=== PATIENT | male | born 1995 | race Caucasian/White ===

== ENCOUNTER 2024-09-02 09:05 | Outpatient (AMB) | payer OTHER, SELFPAY ==
--- NOTE | 2024-09-02 09:13 | A.OFFPC_ITS ---
Vital Signs 09/02/24 09:14 Height 6 ft 7 in Weight 269 lb BMI 30.3 BP 106/70 Blood Pressure Location Lt brachial Position Sitting Pulse 92 Pulse Source Pulse Oximeter Temp 98.0 F Temp Source Oral Pulse Oximetry (%) 97 Intake Visit Reasons: est care Intake Note: pt is here for est care Water Analyst Required: No Accompanied by: Mother Allergies aspartame Allergy (Mild, Verified 09/02/24 10:06) Unknown hydrocortisone [From Hydrocortone] Allergy (Mild, Verified 09/02/24 10:06) Rash mold Allergy (Mild, Verified 09/02/24 10:06) Unknown Medication List - Last Reconciled 09/02/24 by JODIE Taylor-BC multivitamin 1 tab PO DAILY Tobacco use date assessed: 09/02/24 Dental Screening Dental Screen Date: 09/02/24 Did you have a dental visit in the last 12 months?: Yes Did you have a dental problem in the last 6 months where you did not have access to dental care?: No Was dental information given to patient?: Patient has dentist HPI HPI Comments History of Present Illness Details 29 y/o M with migraine, BHANU, obesity, ne ck pain Social works at [employer], lives w/ Mom Health Maintenance: Flu declined Tdap declined Specialist podiatry chiro Here to est care The patient is a 29-year-old male presenting with nausea and vomiting. The symptoms began on Saturday at 9:00 AM with both vomiting and diarrhea. There was no presence of blood in the vomitus or stool. The patient denies any fever but reports experiencing chills. As of late yesterday, the vomiting has ceased, although he experiences a persistent state of dehydration and dryness of the mouth. He notes a reduced frequency of urination due to decreased fluid intake. The patient has not traveled recently and has not consumed any new foods, nor have any acquaintances recently experienced similar symptoms. The patient has a history of migraines, for which he takes specific medication, although he is currently out of this medication. These episodes are noted to be severe, occasionally causing further dehydration and nausea. He recalls a past occurrence of a migraine while in [place]. For his discolored toenail, the patient has observed persistent discoloration in his right great toenail. He previously consulted a freight service inspector, who has since , and received some medication that provided partial improvement but did not resolve the discoloration entirely. 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 He has been receiving care taker with prescribed exercises to manage this pain. + anxiety, stressors. would like to see counselor. Physical Exam General: Awake, alert. No apparent distress Eyes: Sclera and conjunctiva clear bilaterally Throat: Moist mucosa dry Cardiovascular: Regular rate and rhythm Respiratory: Clear to auscultation bilaterally Abd: soft, nontender, hypoactive bs x 4 R great toe nail thickened and discolored Flat affect Results Viral swab obtained and pending Discussion Notes I discussed with the patient the current state of his symptoms. Regarding nausea and dehydration, I recommended maintaining adequate hydration with liquids like water, watered-down jing adam, broth, and liquid supplements like Gatorade or Liquid IV. In the discussion regarding toenail discoloration, I proposed a podiatry referral to [facility] and [facility] for further evaluation and management. For migraines, I acknowledged the need for renewal of his migraine medication. We also discussed stress and anxiety management, leading to the decision to place a referral for counseling. Finally, I addressed musculoskeletal care, suggesting continuation with chiropractic treatments. Assessment and Plan 29-year-old male with a history of migra price presenting with nausea and vomiting, dehydration, and discolored toenail. The cessation of vomiting is noted with ongoing symptoms of dehydration. The likely diagnosis is acute gastroenteritis with secondary dehydration, possibly exacerbated by his migraine history. Discolored toenail may indicate persistent onychomycosis. Musculoskeletal pain is related to his occupational posture and is under current management. Stress and mild anxiety are present, warranting further exploration. 1. Dehydration Addressed with increased oral fluid intake; monitoring symptom improvement and consideration for further intervention if symptoms persist. 2. Nausea And Vomiting Suggested continued rehydration through oral fluids like broth and Gatorade. Emphasized importance of adequate fluid intake. Monitoring for any recurrence of symptoms was advised. 3. Discolored Toenail Discussed referral to [facility] and [facility] for podiatry consultation to assess persistent nail discoloration. 4. Musculoskeletal Pain Continued care taker with home exercises recommended to manage neck and upper back pain from occupational posture. No new interventions proposed. 5. Migraine Advised renewing the prescription for migraine medication. Discussed managing current migraine exacerbations with approved medication. Patient Instructions - Increase fluid intake with water, brot h, and electrolyte beverages. - Follow up with podiatry for the kathy monterroso toenail. - Renew and take migraine medication as prescribed. - Continue with assigned chiropractic ex ercises for neck pain. - Follow up with the counseling referral to address stress and anxiety. - Sign up for pt portal. Viral swab resu lts will be posted there and treatment rendered as needed. - Return if symptoms worsen or do not im prove as expected. Patient was informed and verbally consented to the use of an ambient scribe for clinic note documentation during this visit. Total time spent caring for the patient today was 45 minutes. This includes time spent before the visit reviewing the chart, time spent during the visit, and time spent after the visit on documentation, reviewing laboratory results, diagnostic imaging, medications, performing a medically necessary evaluation, counseling on diagnoses, care coordination, ordering appropriate tests, ordering appropriate medications, review of tests performed by other providers, reporting test results with the patient, communication with other healthcare providers. [facility] Surgical History (Updated 09/02/24 @ 09:20 by Pipo Saucedo [facility]) No pertinent past surgical history Social History Housing: House Patient Tobacco Use Status: Never used Tobacco e-Cigarette/Vaping Use: Never Used service: No Current occupational status: employed Current occupation: [employer] Current occupational exposures/hazards: No Cognitive needs: No Hearing needs: No Vision needs: No Questionnaire PHQ-9 Over the last 2 weeks, how often have you been bothered by any of the following problems? 1. Little interest or pleasure in doing things: not at all 2. Feeling down, depressed, or hopeless: not at all 3. Trouble falling or staying asleep, or sleeping too much: not at all 4. Feeling tired or having little energy: not at all 5. Poor appetite or overeating: not at all 6. Feeling bad about yourself - or that you are a failure or have let yourself or your family down: not at all 7. Trouble concentrating on things, such as reading the newspaper or watching television: not at all 8. Moving or speaking so slowly that other people could have noticed. Or the opposite - being so fidgety or restless that you have been moving around a lot more than usual: not at all 9. Thoughts that you would be better off or of hurting yourself in some way: not at all Total score: 0 Depression Screening Interpretation: Negative Depression Screening Done: Yes 28981 - PHQ-9 Billing: Yes Source: Developed by Drs. Oscar Rojas, Rosaline Rivera, Chang Perry and colleagues, with an educational vadim from [employer]. Thrive Questionnaire Date Thrive assessed: 09/02/24 I am a: Patient What is your living situation today?: I have a steady place to live Within the past 12 months, did the food you bought not last and you didn't have the money to get more?: Never true Within the past 12 months, did you worry whether your food would run out before you got money to buy more?: Never true Do you have trouble paying for medicines?: No Do you have trouble getting transportation to medical appointments?: No Do you have trouble paying your heating and electricity bill?: No Do you have trouble taking care of your child, family member or friend?: No Do you have trouble with day-to-day activities such as bathing, preparing meals, shopping, managing finances, etc.?: No Are you currently unemployed and looking for a job?: No Are you interested in more education?: No Please select the resources that you would like help with: None Currently or been in a relationship where the following occur: No concerns r eported THRIVE Score: 0 AUDIT C Alcohol Use Questionnaire (AUDIT-C) 1. How often do you have a drink containing alcohol?: Monthly or less 2. How many drinks containing alcohol do you have on a typical day when you are drinking?: 1 or 2 3. How often do you have six or more drinks on one occasion?: Never Total Score: 1 Score Reviewed/Action Taken: Yes BHANU-7 AMB Questionnaire BHANU-7 Date BHANU - 7 assessed: 09/02/24 Feeling nervous, anxious, or on edge: 0 = Not at all Not being able to stop or control worryin = Not at all Worrying too much about different things: 0 = Not at all Trouble relaxin = Not at all Being so restless that it is hard to sit still: 0 = Not at all Becoming easily annoyed or irritable: 0 = Not at all Feeling afraid as if something awful might happen: 0 = Not at all Total BHANU-7 score (0-4 normal; 5-9 mild; 10-14 moderate; 15-21 severe): 0 Source: Developed by Drs. Oscar Rojas, Rosaline Rivera, Chang Perry and colleagues, with an educational vadim from [employer]. BHANU-7 Assessment Billing BHANU-7 Assessment Tool: BHANU-7 Assessment 65347 Physical exam (Primary Care) Vital Signs: Last Vital Signs Temp 98.0 F 09/02/24 09:14 Pulse 92 09/02/24 09:14 BP 106/70 09/02/24 09:14 Pulse Ox 97 09/02/24 09:14 BMI result Body Mass Index 30.3 BMI Assessment/Plan discussion: High BMI High, discussed plan: lifestyle Tobacco/Smoking Status: Tobacco use Status Tobacco use date assessed 09/02/24 09/02/24 09:23 Patient Tobacco Use Status Never used Tobacco 09/02/24 09:23 e-Cigarette/Vaping Use Never Used 09/02/24 09:23 PHQ-9: PHQ-9 Score PHQ-9: Total score 0 09/02/24 10:08 Depression Screening Interpretation: Negative Thrive Assessment: Date of Thrive Assessment Date Thrive assessed 09/02/24 09/02/24 09:30 Currently or been in a relationship where the following occur: No concerns reported Coding Level of Care Code New Pt Level 4 (19312) Complex EM visit Add On G2211 Diagnoses Encounter to establish care Z76.89 Migraine headache G43.909 Migraine type: unspecified Intractability: not intractable Onychomycosis B35.1 Stomach flu A08.4 Neck pain M54.2 BMI 30.0-30.9,adult Z68.30 Obesity, Class I, BMI 30-34.9 E66.811 BHANU (generalized anxiety disorder) F41.1 Laboratory exam ordered as part of routine general medical examination Z00.00 Influenza vaccination declined Z28.21 Tetanus, diphtheria, and acellular pertussis (Tdap) vaccination declined Z28.21 Additional Codes BHANU-7 Assessment Billing - BHANU-7 Assessment Tool: BHANU-7 Assessment 16615 ([id number]) PHQ-9 - 01746 - PHQ-9 Billing: Yes ([id number]) Assessment & Plan Assessment & Plan (1) Encounter to establish care: Comment: no old records states no care since college Code(s): Z76.89 - Persons encountering health services in other specified circumstances Category: Medical (2) Migraine headache: Code(s): G43.909 - Migraine, unspecified, not intractable, without status migrainosus Category: Medical Qualifiers: Migraine type: unspecified Intractability: not intractable (3) Onychomycosis: Comment: R great toe Code(s): B35.1 - Tinea unguium Category: Medical (4) Stomach flu: Code(s): A08.4 - Viral intestinal infection, unspecified Category: Medical (5) Neck pain: Code(s): M54.2 - Cervicalgia Category: Medical (6) BMI 30.0-30.9,adult: Code(s): Z68.30 - Body mass index [BMI] 30.0-30.9, adult Category: Medical (7) Obesity, Class I, BMI 30-34.9: Code(s): E66.811 - Obesity, class 1 Category: Medical (8) BHANU (generalized anxiety disorder): Code(s): F41.1 - Generalized anxiety disorder Category: Medical (9) Laboratory exam ordered as part of routine general medical examination: Code(s): Z00.00 - Encounter for general adult medical examination without abnormal findings Category: Medical (10) Influenza vaccination declined: Code(s): Z28.21 - Immunization not carried out because of patient refusal Category: Medical (11) Tetanus, diphtheria, and acellular pertussis (Tdap) vaccination declined: Code(s): Z28.21 - Immunization not carried out because of patient refusal Category: Medical Plan . Orders: Orders UA CC w/rflx Micro + Cult Today Z00.00 - Encounter for general adult medical examination without abnormal findings SARS-CoV2/FLU/RSV Today R09.89 - Other specified symptoms and signs involving the circulatory and respiratory systems Complete Blood Count no Diff Today Z00.00 - Encounter for general adult medical examination without abnormal findings Comprehensive Met. Panel Today Z00.00 - Encounter for general adult medical examination without abnormal findings Hemoglobin A1c Today Z00.00 - Encounter for general adult medical examination without abnormal findings Lipid Panel Today Z00.00 - Encounter for general adult medical examination without abnormal findings Microalbumin, Random (w Creat) Today Z00.00 - Encounter for general adult medical examination without abnormal findings TSH reflex Free T4 Today Z00.00 - Encounter for general adult medical examination without abnormal findings Vitamin B12 and Folate Today Z00.00 - Encounter for general adult medical examination without abnormal findings Vitamin D 25-OH Total Today Z00.00 - Encounter for general adult medical examination without abnormal findings Referrals Podiatry Referral B35.1 - Tinea unguium Nurse Navigator Referral F41.1 - Generalized anxiety disorder Medications: New eletriptan take 1 tab at onset of headache; if no relief may repeat 1 tab after at least 2 hrs; max = 4 tabs/24 hr PO 7 tabs 12RF Patient Instructions: Walk-In Care (Urgent Care): We Make it Easy Walk-in for urgent medical issues such as: ? Seasonal Allergies ? Insect Bites ? Cough ? Diarrhea ? Acute Asthma Attacks ? Back, Knee or Joint Pain ? Ear Infection ? Fever without a Rash ? Headaches ? Nausea ? Dysart Eye, Rash or Skin Irritation ? Sore Throat ? Sports Physicals ? Vomiting Most insurances are accepted. Patients do not need to be part of the [facility] to seek care at the walk-in clinic. Locations [facility] , [place] [address] ? [phone] [facility] in [place] provides services to ages 18 and over. Open Saturday-Saturday: 8 a.m. to 5 p.m. and Saturday: 9 a.m. to 3 p.m.* *Hours may vary due to staffing availability. To confirm Walk-In Care hours in [place], please call [phone]. [address] [place] [address] ? [phone] [facility] in [place] provides services to ages 12 and over. Open Saturday-Saturday: 8 a.m. to 5 p.m. Hours may vary due to staffing availability. To confirm Walk-In Care hours in [place], please call [phone]. LABORATORY SERVICES: [facility] Lab ? Primary Location [address] [place] [address] Saturday through Saturday 6:00 AM ? 5:00 PM Saturday 7:00 AM ? 11:00 AM* [phone] The [facility] Lab is centrally located near the front entrance of the [facility] for easy outpatient access. Convenient parking is provided for outpatients. *Hours may vary due to staffing availability. To confirm Laboratory hours for any location, please call [phone]. Offsite Location For your convenience, we offer offsite laboratory draw stations at the following locations: [address] [place] [address] ? [facility] [address] [facility], [address] Saturday through Saturday 7:30 AM ? 1:00 PM* [phone] *Hours may vary due to staffing availability. To confirm Laboratory hours for any location, please call [phone]. [place] ? [address] Saturday through Saturday 6:00 AM ? 3:30 PM* Saturday 6:30 AM ? 3 PM* [phone] *Hours may vary due to staffing availability. To confirm Laboratory hours for any location, please call [phone]. [address] [facility] Saturday through Saturday 7:30 AM ? 4:00 PM* [phone] *Hours may vary due to staffing availability. To confirm Laboratory hours for a ok location, please call [phone] [place] [address] Saturday through 9:00 AM ? 4:00 PM* *Hours may vary due to staffing availability. To confirm Laboratory hours for any location, please call [phone]. Appointments are not necessary. Walk-ins are welcome. Like all the departments throughout the [facility], our Lab undergoes frequent reviews to ensure the quality and accuracy of test results, and our staff takes special pride in its status as a nationally accredited facility. Patient Portal: ONE PATIENT. ONE RECORD. BETTER CARE. [facility] has a fully integrated, cutting- edge mobile electronic health information system that has revolutionized the way we care for our patients and manage our organization. This system improves communication and coordination enabling us to provide safe, higher-quality care, and an overall positive experience for staff and patients. Our first priority, as always, is to deliver the highest quality care possible. The system is running in the background supporting that priority. This portal is for all [facility] services and practices. If you are experiencing any technical difficulties with enrolling or logging into the Patient Portal please complete the [facility] Patient Portal Technical Support Form. [facility] now offers a new secure on-line interactive tool for patients to review their health information ? ?Patient Portal. This interactive web portal will enable patients and their families to take an active role in their care by providing easy, secure access to their health information via the internet. The Patient Portal provides patients with instant access to their health information, including laboratory results, medications, allergies, demographic information, visit history, and more. In addition to managing their own care, parents and health care proxies with authorized consent will appreciate the ability to access the records of those individuals for whom they provide care. Please note: if you wish to gain access (Proxy) to another patient?s portal, you will be required to come to the Medical Records Department in person at [facility]. Both the patient giving proxy access and the proxy will need to provide photo identification and complete the appropriate authorization. The Patient Portal also allows track their appointments online. The [facility] Patient Portal also saves patients time by allowing them to submit updates to their demographic and contact information prior to their visits. Portal email notifications will also alert patients to any new activity on their portal, such as test results and new appointments. In order to initially enroll in the [facility] Patient Portal, you will need to enter some required information including the following: * your [facility] Medical Record number * your personal home email address * name * date of Please note: In order to enroll in the [facility] Patient Portal, we need to have your email address on file in your electronic medical record. ?The email address needs to be specific for one person (yourself) in order for your Portal enrollment to be successful. ?You can update your email address in person with our Registration staff when you are registering for a hospital visit. ?Otherwise, you will need to come to the Health Information Management (Medical Records) Department at [facility]. ?We are open from Saturday ? Saturday from 7:30 a.m. ? 4:30 p.m. ?You will be required to present a photo id. Once you have successfully enrolled in the Patient Portal, you will receive a one-time user id and password for the Portal, sent to your email address. ?This will allow you to log into the Patient Portal within 99 hrs and reset your own logon id and password, and define personal security questions. ?Once your permanent login and password have been set, you can log into the [facility] Patient Portal at any time via the blue button above or from the Portal Logon button on any page of the [facility] website. [facility] encourage all of our patients to enroll in Patient Portal as it presents a valuable opportunity for patients and their families to actively participate in their care and stay healthy Welcome to [facility]. ?We look forward to working with you.
[2024-09-02 09:14] VITALS: BP 106/70; PULSE 92; TEMP 36.7; O2SAT 97; BMI 30.3
--- OUTSIDE RECORDS SUMMARY | 2024-09-02 10:03 | XMS_ITS | Clinical Summary ---
Author Organization [facility] Address [address] [place] [address] Care Team Providers Care Kieselguhr Regenerator Operator Name Role Phone Yamilka Briceño MD Primary Care Provider [phone] Yamilka Briceño MD Unavailable [phone] Allergies Active Allergy Reactions Criticality Noted Date Comments Hydrocortisone 12/21/2016 Reactions: Rash Medications Eletriptan Hydrobromide (Relpax) 20 MG tablet TAKE 1 TABLET AT ONSET OF MIGRAINE. MAY REPEAT ONCE AFTER 2 HOURS. MAX 2 DOSES/24 HOURS. 36 3 7 Active Azithromycin (ZITHROMAX) 250 MG tablet Take 2 tablets on day 1, then 1 tablet a day for 4 days. 6 0 8 Active Active Problems Problem Noted Date Diagnosed Date Sore throat 10/04/2017 Overview (08/25/2023): Impression - [id number]: probably viral, possible mono Lower back pain 04/26/2017 Acute bronchitis 12/21/2016 Obesity 12/21/2016 Overview (08/25/2023): Impression - 04Jsj4544: Lose it! Impression - 72Bov1904: weight loss Classic migraine with aura 12/21/2016 Overview (08/25/2023): Impression - 13Fqg2712: neurology f/u Impression - 91Zhl9967: one MOORE since move several month ago Immunizations Name Administration Dates Next Due DT (pediatric) 12/21/2014 Family History Medical History Relation Name Comments Cancer - Breast Maternal grandmother khanh gnant neoplasm of breast : Maternal Grandmother, Grandfather Cancer - Breast Other malignant ne oplasm of breast : Maternal Grandmother, Grandfather Cancer - Prostate Other prostate c ancer : Grandfather Relation Name Status Comments Maternal grandmother Other Social History Tobacco Use Types Packs/Day Years Used Date Smoking Tobacco: Never Assessed Comments:Smoking Status:No c urrent tobacco use Sex and Gender Information Value Date Recorded Sex Assigned at Not on file Legal Sex Male 11:46 AM EDT Gender Identity Not on file Sexual Orientation Not on file Last Filed Vital Signs Vital Sign Reading Time Taken Comments Blood Pressure 110/70 10/04/2017 1:59 PM EDT Pulse 101 10/04/2017 1:59 PM EDT Temperature 36.8 ??C (98.2 ??F) 10/04/2017 1:59 PM ED T Respiratory Rate - - Oxygen Saturation 96% 10/04/2017 1:59 PM EDT Inhaled Oxygen Concentration - - Weight 127 kg (278 lb 15.9 oz) 10/04/2017 1:59 P M EDT Height 192.4 cm (6' 3.75 ) 10/04/2017 1:59 PM ED T Body Mass Index 34.19 10/04/2017 1:59 PM EDT Plan of Treatment Health Maintenance Due Date Last Done Comments Hepatitis C Screening 1995 DTaP/Tdap/Td (1 - Tdap) 01/30/2012 Hep B (1 of 3 - 19+ 3-dose series) 2013 COVID-19 Vaccine ( - 2023-2 5 season) 2024 Influenza (#1) 2024 Zoster (Shingrix) (1 of 2) 01/30/2044 Physical Discontinued 12/21/2016 HPV Vaccine Aged Out No longer eligi ble based on patient's age to complete this topic Hep A Aged Out No longer eligi ble based on patient's age to complete this topic Hib Aged Out No longer eligi ble based on patient's age to complete this topic Meningococcal ACWY Aged Out No longer eligible based on patient's age to complete this topic Pneumococcal Aged Out No longer eligi ble based on patient's age to complete this topic Care Teams Kieselguhr Regenerator Operator Relationship Specialty Start Date End Date Yamilka Briceño MD [address] [place] [address] PCP - General 02/25/23 Yamilka Briceño MD [address] [place] [address] PCP - Backup PCP Internal Medicine 08/21/23
== END 2024-09-02 10:23 | disposition home or self-care (01) ==
PROVIDERS: PCP Nurse Practitioner Family; Visit Provider Nurse Practitioner Family
DX: Z76.89 Persons encountering health services in other specified circumstances (principal); G43.909 Migraine, unspecified, not intractable, without status migrainosus; B35.1 Tinea unguium; A08.4 Viral intestinal infection, unspecified; M54.2 Cervicalgia; Z68.30 Body mass index [BMI] 30.0-30.9, adult; E66.811 Obesity, class 1; F41.1 Generalized anxiety disorder; Z00.00 Encounter for general adult medical examination without abnormal findings; Z28.21 Immunization not carried out because of patient refusal

== ENCOUNTER → 2024-09-02 09:05 | Outpatient (BNVA) | payer OTHER, SELFPAY | PROVIDERS: PCP Nurse Practitioner Family; Visit Provider Nurse Practitioner Family | DX: Z76.89 Persons encountering health services in other specified circumstances (principal); G43.909 Migraine, unspecified, not intractable, without status migrainosus; B35.1 Tinea unguium; A08.4 Viral intestinal infection, unspecified; M54.2 Cervicalgia; E66.811 Obesity, class 1; Z68.30 Body mass index [BMI] 30.0-30.9, adult; F41.1 Generalized anxiety disorder; Z28.21 Immunization not carried out because of patient refusal | CPT/HCPCS: 96127 ==

== ENCOUNTER 2024-09-02 10:34 | Outpatient (REF) | payer OTHER, SELFPAY ==
--- OUTSIDE RECORDS SUMMARY | 2024-09-02 12:21 | XMS_ITS | Clinical Summary ---
Author Organization [facility] Address [address] [place] [address] Care Team Providers Care Tannery Gummer Name Role Phone Yamilka Briceño MD Primary Care Provider [phone] Yamilka Briceño MD Unavailable [phone] Allergies Active Allergy Reactions Criticality Noted [...] Sore throat 10/04/2017 Overview (08/25/2023): Impression - 36Plf5238: probably viral, possible mono Lower back pain 04/26/2017 Acute bronchitis 12/21/2016 Obesity 12/21/2016 Overview (08/25/2023): Impression - 81Uwe9334: Lose it! Impression - 07Idd6911: weight loss Classic migraine with aura 12/21/2016 Overview (08/25/2023): Impression - 72Ayp3743: neurology f/u Impression - 64Ncg0377: one MOORE since move several month ago [...] age to complete this topic Care Teams Tannery Gummer Relationship Specialty Start Date End Date Yamilka Briceño MD [address] [place] [address] PCP - General 02/25/23 Yamilka Briceño MD [address] [place] [address] PCP - Backup PCP Internal Medicine 08/21/23
[2024-09-02 14:32] LABS: Hematocrit 47.8 % (42.0-52.0); Hemoglobin 16.2 g/dl (14.0-18.0); Mean Corpuscular HGB Conc 33.9 g/dl (31.0-36.0); Mean Corpuscular Hemoglobin 29.2 pg (27.0-33.0); Mean Corpuscular Volume 86.3 fL (80.0-98.0); Mean Platelet Volume 9.7 fL (9.4-12.4); Platelet Count 287 X10*3/uL (160-400); Red Blood Count 5.54 X10*6/uL (4.60-5.80); Red Cell Distribution Width 13.1 % (11.0-16.0)
[2024-09-02 14:42] LABS: Appearance Urine Turbid; Color Urine Dark Yellow; Glucose Urine UA Negative (Negative); Leukocyte Esterase Urine Negative (Negative); Nitrite Urine Negative (Negative); Specific Gravity - Urine >= 1.030 (1.005-1.025); UMIC TRIGGER UACC YES; Urine Blood Negative (Negative); Urine Ketones Trace mg/dL (Negative); Urine Protein 30 (1+) mg/dL (Neg-Trace)
[2024-09-02 14:51] LABS: Estimated Average Glucose 105 mg/dL; Hemoglobin A1C 138.7668 umol/L; Hemoglobin A1c % 5.3 % (<6.0); Total Hemoglobin (HGBA1C) 4027.6162 umol/L
[2024-09-02 14:53] LABS: Alanine Aminotransferase 27 U/L (0-40); Albumin Level 4.7 g/dL (3.5-5.0); Alkaline Phosphatase 58 U/L (39-117); Anion Gap 14 (12-20); Aspartate Amino Transferase 29 U/L (5-37); Bilirubin Total 0.7 mg/dL (0.0-1.0); Blood Urea Nitrogen 15 mg/dL (9-16); Calcium 9.3 mg/dL (8.4-10.2); Carbon Dioxide 26 mmol/L (22-29); Chloride 103 mmol/L (96-108); Cholesterol 202 mg/dL (<200); Estimated Glomerular Filt Rate > 60; Glucose Random 77 mg/dL (60-115); HDL Cholesterol 44 mg/dL (>40); LDL Cholesterol Calculated 135 mg/dL (<100); Potassium 3.5 mmol/L (3.3-5.1); Sodium 139 mmol/L (135-145); Total Protein 8.6 g/dL (6.5-8.0); Triglycerides 117 mg/dL (<150)
[2024-09-02 14:58] LABS: Bacteria Urine None Seen (None Seen); Hyaline Casts Urine 0-2 /LPF (0-2); RBC Urine 0-2 /HPF (0-2); Squamous Epithelial Cell Urine 0-2 /HPF (0-2); WBC Urine 0-5 /HPF (0-5)
[2024-09-02 15:14] LABS: TSH reflex Free T4 0.79 uIU/mL (0.32-4.0)
[2024-09-02 15:19] LABS: Vitamin B12 424 pg/mL (200-900)
[2024-09-02 16:14] LABS: Influenza A PCR NEGATIVE (Negative); Influenza B PCR NEGATIVE (Negative); Resp Syncy Virus RNA Qual PCR NEGATIVE (Negative); SARS COV2 PCR INHOUSE NEGATIVE (Negative)
[2024-09-02 19:45] LABS: Creatinine Urine 362.47 mg/dL; Microalbum/Creatinine Ratio Ur 11.3 ug/mg cr (<30)
== END 2024-09-02 10:35 | disposition home or self-care (01) ==
LOC: HO.WFDLDS 10:34
PROVIDERS: Visit Provider Nurse Practitioner Family
DX: Z00.00 Encounter for general adult medical examination without abnormal findings (principal); Z13.1 Encounter for screening for diabetes mellitus; Z13.6 Encounter for screening for cardiovascular disorders; R09.89 Other specified symptoms and signs involving the circulatory and respiratory systems; M54.2 Cervicalgia
CPT/HCPCS: 0241U; 36415; 80053; 80061; 81001; 82043; 82306; 82570; 82607; 82746; 83036; 84443; 85027

== ENCOUNTER 2024-10-27 13:46 | Outpatient (AMB) | payer OTHER, SELFPAY ==
--- NOTE | 2024-10-27 14:14 | MHC.PC.OV ---
Intake Visit Reasons: Neurologist Referral Intake Note: telehealth for neurology referral Gynecological Assistant Required: No Allergies aspartame Allergy (Mild, Verified 10/27/24 14:55) Unknown hydrocortisone [From Hydrocortone] Allergy (Mild, Verified 10/27/24 14:55) Rash mold Allergy (Mild, Verified 10/27/24 14:55) Unknown Medication List - Last Reconciled 10/27/24 by JODIE Taylor- eletriptan take 1 tab at onset of headache; if no relief may repeat 1 tab after at least 2 hrs; max = 4 tabs/24 hr PO multivitamin 1 tab PO DAILY Tobacco use date assessed: 10/27/24 Dental Screening Dental Screen Date: 10/27/24 Did you have a dental visit in the last 12 months?: Yes Did you have a dental problem in the last 6 months where you did not have access to dental care?: No Was dental information given to patient?: Patient has dentist HPI HPI Comments History of Present Illness Details 29 y/o M with migraine, BHANU, obesity, neck pain Social works at [employer], lives w/ Mom Specialist podiatry chiro [facility] History of Present Illness - The patient is a 29-year-old male presenting with migraines. The patient has a history of migraines, for which he takes specific medication, although he is currently out of this medication. These episodes are noted to be severe, occasionally causing further dehydration and nausea. He recalls a past occurrence of a migraine while in [place]. Currently on eletriptan with great relief Mom sees [facility] [place], would like same referral. Denies any new sx. c/o foreskin adhesion, present for years; bothersome; not sexually active at this time. Denies emergent issues or sx. Interested in eval and tx. Assessment and Plan 1. Migraine: Medication has been effective so far without urgent additional needs. A neurology referral was placed for further management. 2. Phimosis: referral to the urologist at [facility] to further assess and develop a care plan. Telehealth Attestation This visit was conducted via telehealth. Documentation accurately reflects the information provided by the patient during the visit. The patient has been explained that this is an interactive (audio/video) telehealth encounter and what that consists of. The patient understands and wishes to proceed. [employer] platform was used. Total time spent caring for the patient today was 11 minutes. This includes time spent before the visit reviewing the chart, time spent during the visit, and time spent after the visit on documentation, reviewing laboratory results, diagnostic imaging, medications, performing a medically necessary evaluation, counseling on diagnoses, care coordination, ordering appropriate tests, ordering appropriate medications, review of tests performed by other providers, reporting test results with the patient, communication with other healthcare providers. [facility] Surgical History (Updated 09/02/24 @ 09:20 by Pipo Saucedo [facility]) No pertinent past surgical history Social History Housing: House Patient Tobacco Use Status: Never used Tobacco e-Cigarette/Vaping Use: Never Used service: No Current occupational status: employed Current occupation: [employer] Current occupational exposures/hazards: No Cognitive needs: No Hearing needs: No Vision needs: No Questionnaire Thrive Questionnaire Date Thrive assessed: 09/02/24 BHANU-7 AMB Questionnaire BHANU-7 Date BHANU - 7 assessed: 09/02/24 Source: Developed by Drs. Oscar Rojas, Rosaline Rivera, Chang Perry and colleagues, with an educational vadim from [employer] Physical exam (Primary Care) Tobacco/Smoking Status: Tobacco use Status Tobacco use date assessed 10/27/24 10/27/24 14:15 Patient Tobacco Use Status Never used Tobacco 10/27/24 14:15 e-Cigarette/Vaping Use Never Used 10/27/24 14:15 Thrive Assessment: Date of Thrive Assessment Date Thrive assessed 09/02/24 10/27/24 14:15 Telehealth Telehealth Telehealth Platform: [employer] Location of provider rendering services: practice address Location of patient: address on file Patient Identification confirmed using: Name, : Yes Telehealth method: voice only Patient verbally consented to treatment: Yes Patient verbally consented to billing insurance company: Yes Patient informed of any privacy concerns related to visit: Yes Minutes spent on Phone/Video with Pt.: 6 Coding Level of Care Code Tele Est Pt Level 2 (33556) Complex EM visit Add On G2211 Diagnoses Migraine without aura and without status migrainosus, not intractable G43.009 Migraine type: migraine (< 15 days per month) without aura Intractability: not intractable Status migrainosus presence: without status migrainosus Phimosis of penis N47.1 Assessment & Plan Assessment & Plan (1) Migraine headache: Code(s): G43.909 - Migraine, unspecified, not intractable, without status migrainosus Category: Medical Qualifiers: Migraine type: migraine (< 15 days per month) without aura Intractability: not intractable Status migrainosus presence: without status migrainosus Qualified Code(s): G43.009 - Migraine without aura, not intractable, without status migrainosus (2) Phimosis of penis: Code(s): N47.1 - Phimosis Category: Medical Plan . Orders: Referrals Neurology Referral G43.909 - Migraine, unspecified, not intractable, without status migrainosus Urology Referral N47.1 - Phimosis
--- OUTSIDE RECORDS SUMMARY | 2024-10-27 16:50 | XMS_ITS | Patient Health Record ---
Author Organization [facility] Address [address] [address] Care Team Providers Care Keyboard Instrument Repairer Name Role Phone Yareli Echeverria Primary Care Provider BERE Crandall Unavailable [phone] Allergies Allergen (clinical drug ingredient) Drug/Non Drug Allergy documented on EMR Reaction Allergy Type Onset Date Status aspartame Aspartame Unknown Drug Allergy Active Mold Unknown Allergy Active hydrocortisone Hydrocortisone Unknown Drug Allergy Active Reason For Referral No Information Medications Medication SIG (Take, Route, Fr equency, Duration) Notes Start Date End Date Status Tavaborole 5 % 1 application Furniture Stainer ally Once a day for 90 days 10/07/2024 Active Multivitamin - 1 tablet Orally Once a day Active Efinaconazole 10 % 1 application Furniture Stainer ally Once a day for 90 days 10/08/2024 Active Vitamin D Active Vital Signs Heart Rate 85 /min 09/30/2024 Temperature 97.2 degrees Fahrenheit 09/30/2024 Respiratory Rate 16 /min 09/30/2024 Height 6ft 7in in 09/30/2024 Weight 272.7 lbs 09/30/2024 BMI 30.72 kg/m2 09/30/2024 Encounters Encounter Location Date Provider Diagnosis [facility] [address] [address] 09/30/2024 BERE MENSAH Onychomycosis B35.1 ; Nail dystrophy L60.3 and Pain of toe of right foot M79.674 [facility] [address] [address] 10/26/2024 BERE MENSAH [facility] [address] [address] 10/05/2024 BERE MENSAH [facility] [address] [address] 10/08/2024 BERE MENSAH [facility] [address] [address] 10/14/2024 BERE MENSAH [facility] [address] [address] 10/23/2024 BERE MENSAH Assessments Encounter Date Diagnosis (ICD Code) Assessment Notes Treatment Notes Treatment Clinical Notes Section Notes 09/30/2024 Nail dystrophy (ICD-10 - L60.3) 09/30/2024 Onychomycosis (ICD-10 - B35.1) This is an outpatient visit for evaluation and management of a new patient, which required appropriate review of pertinent medical history, review of all previous records, and examination and decision-making. Time was 30 minutes spent in review of all these facets including face to face discussion with the patient regarding my findings and in discussion of a current and future treatment plan. I reviewed with the patient various treatment methods for toenail fungus including: topical, oral, laser, and removal of the infected toenails. I explained to the patient that a toenail takes about 9-12 months to grow out completely, so he should start to slowly see results. We discussed using a separate automatic outsole cutter for the fungal toenail. We also discussed using an antifungal spray inside his shoes. Using a curette and automatic outsole cutter, I obtained a toenail biopsy of the right hallux toenail to send for PCR, fungal culture, patient tolerated well. Hepatic panel was ordered and patient informed they will need lab work done every month they are on the medication if he chooses the oral medication. Pt agreed. Reviewed the risks/side effects of the oral antifungal with the patient. Explained the risks of liver damage, tinnitus, metallic taste, and GI upset. Pt verbalized understanding of these risks. I will contact the patient once I receive the results of the nail biopsy, and he can decide if he wants to try the oral or prescription topical medication. He is in agreement with this plan. I will have them follow back with me in 3 months. 09/30/2024 Pain of toe of right foot (ICD-10 - M79.674) Plan Of Treatment Next Appt Details Provider Name:BERE MENSAH, 01/06/2025 09:15:00 AM, [address] [facility], [facility], [place], [address], Insurance Providers Payer Name Payer Address Payer Phone Subscriber Number Group Number Insured Name Patient Relationship to Insured Coverage Start Date Coverage End Date [employer] [address] [place] [phone] [id number] Bishnu Lee Self - patient is the insured Medical (General) History Medical History History ICD Code Obesity Class 1 BHANU (generalized anxiety disorder) not COVID vaccinated Surgical History Surgery Date(Month/Year) bilateral finger surgery as a child
--- OUTSIDE RECORDS SUMMARY | 2024-10-27 16:50 | XMS_ITS ---
Author Organization [facility] Address [address] [address] Care Team Providers Care Voltage Regulator Assembler Name Role Phone Yareli Echeverria Primary Care Provider BERE Crandall [phone] REASON FOR VISIT Efinaconazole 10 % Solution Medications Medication SIG (Take, Route, Fr equency, Duration) Notes Start Date End Date Status Efinaconazole 10 % 1 application Fluorescent Lighting Model Maker ally Once a day for 90 days 10/08/2024 Active Encounters Encounter Location Date Provider Diagnosis [facility] [address] [address] 10/14/2024 BERE MENSAH Plan Of Treatment Medication Medication Name Sig Start Date Stop Date Notes Efinaconazole 10 % 1 application Fluorescent Lighting Model Maker ally Once a day for 90 days 10/08/2024 Next Appt Details Provider Name:BERE MENSAH, 01/06/2025 09:15:00 AM, [address] [address], [place], [address], Progress Notes * Bishnu LEEDOB:1995 (29 yo M)Acc No.[id number]:10/14/2024 Patient:?Bishnu LEE :1995???Age:29 Y???Sex:Male Phone: Address:[address] [place] [address], [place], [address] * Refills? Refill Efinaconazole Solution, 10 %, Externally, 10, 1 application, Once a day, 90 days, Refills=3 * true * Date:? Generated for Innai jon/Gareth/eTransmitting on:?10/27/2024 04:49 PM EDT
--- OUTSIDE RECORDS SUMMARY | 2024-10-27 16:50 | XMS_ITS ---
Author Organization [facility] Address [address] [address] Care Team Providers Care Maintenance Advisor Name Role Phone Yareli Echeverria Primary Care Provider BERE Crandall Unavailable [phone] REASON FOR VISIT denied Rx Encounters Encounter Location Date Provider Diagnosis [facility] [address] [address] 10/26/2024 BERE MENSAH Plan Of Treatment Next Appt Details Provider Name:BERE MENSAH, 01/06/2025 09:15:00 AM, [address] [address], [place], [address], Progress Notes * Hany LEEjoeyDOB:1995 (29 yo M)Acc No.[id number]:10/26/2024 Patient:?Bishnu LEE :1995???Age:29 Y???Sex:Male Phone: Address:[address] [place] [address], [place], [address] * * Date:?
--- OUTSIDE RECORDS SUMMARY | 2024-10-27 16:50 | XMS_ITS | Clinical Summary ---
Author Organization [facility] Address [address] [place] [address] Care Team Providers Care Import Customer Service Manager Name Role Phone Yamilka Briceño MD Primary Care Provider [phone] Yamilka Briceño MD Unavailable [phone] Allergies Active Allergy Reactions Criticality Noted [...] Sore throat 10/04/2017 Overview (08/25/2023): Impression - [id number]: probably viral, possible mono Lower back pain 04/26/2017 Acute bronchitis 12/21/2016 Obesity 12/21/2016 Overview (08/25/2023): Impression - 22Fzo2676: Lose it! Impression - 38Chb2967: weight loss Classic migraine with aura 12/21/2016 Overview (08/25/2023): Impression - 70Jtm1956: neurology f/u Impression - 09Wzc0368: one MOORE since move several month ago [...] age to complete this topic Care Teams Import Customer Service Manager Relationship Specialty Start Date End Date Yamilka Briceño MD [address] [place] [address] PCP - General 02/25/23 Yamilka Briceño MD [address] [place] [address] PCP - Backup PCP Internal Medicine 08/21/23
--- OUTSIDE RECORDS SUMMARY | 2024-10-27 16:50 | XMS_ITS ---
Author Organization [facility] Address [address] [address] Care Team Providers Care Bagman/Woman Name Role Phone Yareli Echeverria Primary Care Provider BERE Crandall [phone] REASON FOR VISIT RX Medications Medication SIG (Take, Route, Fr equency, Duration) Notes Start Date End Date Status Efinaconazole 10 % 1 application Wood Grinder Operator ally Once a day for 90 days 10/08/2024 Active Encounters Encounter Location Date Provider Diagnosis [facility] [address] [address] 10/23/2024 BERE MENSAH Plan Of Treatment Medication Medication Name Sig Start Date Stop Date Notes Efinaconazole 10 % 1 application Wood Grinder Operator ally Once a day for 90 days 10/08/2024 Next Appt Details Provider Name:BERE MENSAH, 01/06/2025 09:15:00 AM, [address], [address], Progress Notes * Hany LEEjoeyDOB:1995 (29 yo M)Acc No.[id number]:10/23/2024 Patient:?Bishnu LEE :1995???Age:29 Y???Sex:Male Phone: Address: [address], [place], [address] * Refills? Refill Efinaconazole Solution, 10 %, Externally, 10, 1 application, Once a day, 90 days, Refills=3 * true * Date:? Generated for Printi ng/Faxing/eTransmitting on:?10/27/2024 04:49 PM EDT
== END 2024-10-27 15:10 | disposition home or self-care (01) ==
LOC: HO.HMCFM 13:46
PROVIDERS: PCP Nurse Practitioner Family; Visit Provider Nurse Practitioner Family
DX: G43.009 Migraine without aura, not intractable, without status migrainosus (principal); N47.1 Phimosis

== ENCOUNTER → 2024-10-27 13:46 | Outpatient (BNVA) | payer OTHER, SELFPAY | PROVIDERS: PCP Nurse Practitioner Family; Visit Provider Nurse Practitioner Family ==

== ENCOUNTER 2024-12-23 08:05 | Outpatient (AMB) | payer OTHER, SELFPAY ==
--- NOTE | 2024-12-23 08:07 | MHC.OFFVIS ---
Intake Visit Reasons: phimosis Intake Note: Pt presents to the office today as a new patient visit for phimosis. Urology Meds:None Blood thinners:None Allergies aspartame Allergy (Mild, Verified 12/23/24 08:40) Unknown hydrocortisone [From Hydrocortone] Allergy (Mild, Verified 12/23/24 08:40) Rash mold Allergy (Mild, Verified 12/23/24 08:40) Unknown Medication List - Last Reconciled 12/23/24 by AARON Potts eletriptan take 1 tab at onset of headache; if no relief may repeat 1 tab after at least 2 hrs; max = 4 tabs/24 hr PO multivitamin 1 tab PO DAILY HPI Comments Details: Bishnu Gant is a very pleasant 29-year-old male patient of Dr. Echeverria. He presents to the office today as a new patient for issues with the foreskin of his penis. In discussion with the patient today he reports having had a circumcision many years ago however feels when his penis is erect he experiences a significant amount of pain. In assessment of the patient today the penis is circumcised however there are areas of adhesion noted along the anterior portion of his penis otherwise no open areas, lesions, or drainage noted. He denies any bothersome urinary issues. He denies urinary urgency, urinary frequency, incontinence, nocturia, hematuria, dysuria, foul smelling urine, changes to urinary stream, flank pain, fever, and or chills. He is happy with his current voiding parameters. In office urinalysis results reviewed with the patient today. We discussed skin bridge procedure in office procedure verses procedure under sedation. Risks and benefits of these interventions were discussed. All questions were answered. He otherwise offers no other issues or concerns at this time. [facility] Surgical History No pertinent past surgical history Social History Housing: House Patient Tobacco Use Status: Never used Tobacco e-Cigarette/Vaping Use: Never Used service: No Current occupational status: employed Current occupation: [employer] Current occupational exposures/hazards: No Cognitive needs: No Hearing needs: No Vision needs: No Review of Systems Const All systems reviewed & are unremarkable except as noted in HPI and below Physical Exam Const General: cooperative, healthy appearing, comfortable, no acute distress, well developed, alert and awake Nutritional Appearance: overweight Orientation/consciousness: patient oriented x3 Limitations: no limitations HEENT Head: Yes normal to inspection, Yes normocephalic and Yes atraumatic Ears: hearing grossly normal bilaterally Eyes General: appearance normal, both eyes and all related structures Neck Neck: Yes normal visual inspection and Yes trachea midline Chest Chest palpation & inspection: normal inspection of the chest Resp Effort & Inspection: normal respiratory effort and able to speak in complete sentences Cardio Rate: regular rate GI Inspection: Yes normal to inspection Other: as per HPI General: Yes no CVA tenderness Back/Spine/Pelvis Back: no CVA tenderness Skin General skin exam: no rashes or lesions noted Neuro General: patient oriented x3 Extrem General: Yes normal to inspection Psych Appearance: grossly normal and well kempt Mental Status: mental status grossly normal Speech and movement: Normal speech and movement present and Clear speech present Affect: normal affect Attitude: cooperative Thought process: Normal thought process present Thought content: Normal thought content present Insight: Fair insight present (Psych) Judgement: Fair judgement present (Psych) Results AMB Urinalysis, Automated UA Leukoctes 15 Tejas/uL Last Edit by Angela Peoples CMA on 12/23/24 08:17 UA Nitrite Negative Last Edit by Angela Peoples CMA on 12/23/24 08:17 UA Urobilinogen 0.2 mg/dL Last Edit by Angela Peoples CMA on 12/23/24 08:17 UA Protein 15 mg/dL Last Edit by Angela Peoples CMA on 12/23/24 08:17 UA pH 7.0 Last Edit by Angela Peoples CMA on 12/23/24 08:17 UA Blood 0 Jason/uL Last Edit by Angela Peoples CMA on 12/23/24 08:17 UA Specific [place] 1.015 Last Edit by Angela Peoples CMA on 12/23/24 08:17 UA Ketone Negative Last Edit by Angela Peoples CMA on 12/23/24 08:17 UA Bilirubin 0 mg/dL Last Edit by Angela Peoples CMA on 12/23/24 08:17 UA Glucose 0 mg/dL Last Edit by Angela Peoples CMA on 12/23/24 08:17 Results Reviewed Results Reviewed: Laboratory Last Values Urine pH (Auto) 7.0 12/23/24 08:16 Specific [place] (Auto) 1.015 12/23/24 08:16 Urine Protein (Auto) 15 mg/dL 12/23/24 08:16 Glucose (UA)(Auto) 0 mg/dL 12/23/24 08:16 Urine Ketones (Auto) Negative 12/23/24 08:16 Urine Blood (Auto) 0 Jason/uL 12/23/24 08:16 Urine Nitrite (Auto) Negative 12/23/24 08:16 Urine Bilirubin (Auto) 0 mg/dL 12/23/24 08:16 Urine Urobilinogen (Auto) 0.2 mg/dL 12/23/24 08:16 Leukocyte Esterase (Auto) 15 Tejas/uL 12/23/24 08:16 Assessment & Plan Assessment & Plan (1) Penile adhesions w/skin bridging: Code(s): N48.89 - Other specified disorders of penis Category: Medical Plan In office urinalysis results reviewed the patient today; as noted above. We discussed penile skin bridge procedure in office verses under sedation; risks and benefits were discussed. All questions were answered. He denies any bothersome urinary issues or concerns. He reports be happy with current voiding parameters. Will schedule for skin bridge procedure in office with Dr. Christianson as discussed. Follow-up per doctor's orders; or sooner with any issues, concerns, and or questions. Orders: Orders AMB Urinalysis Automated Today Z13.9 - Encounter for screening, unspecified Patient Instructions: The patient had an opportunity to ask questions regarding the treatment plan. All questions were answered. Physical exam, labs, and imaging were discussed and reviewed in detail. As well as risks, benefits, and discussion of treatment choices. No major barriers to understanding were identified. The patient expressed understanding and agreement with the above treatment plan. The patient was made aware they should contact our office by phone for worsening of their current condition, the appearance of new symptoms, or with any questions or concerns. Compliance is encouraged with any medications and follow up testing that is ordered. It is a privilege to be allowed the opportunity to participate in? your urological care.? Again, if you have any questions or concerns If you have any questions or concerns please do not hesitate to contact me. The office is [phone]. This note is constructed using voice recognition software. While every effort has been made to ensure accuracy creative writing professor errors may have been included. Yours sincerely, JOHANA PottsP-BC Coding Level of Care Code New Pt Level 3 (56875) Diagnoses Penile adhesions w/skin bridging N48.89
--- OUTSIDE RECORDS SUMMARY | 2024-12-23 08:11 | XMS_ITS | Patient Health Record ---
Author Organization [facility] Address [address] [address] Care Team Providers Care Pump Tester Name Role Phone Yareli Echeverria Primary Care Provider BERE Crandall Unavailable [phone] Allergies Allergen (clinical drug ingredient) Drug/Non Drug Allergy documented on EMR Reaction Allergy Type Onset Date Status aspartame Aspartame Unknown Drug Allergy Active Mold Unknown Allergy Active hydrocortisone Hydrocortisone Unknown Drug Allergy Active Reason For Referral No Information Medications Medication SIG (Take, Route, Fr equency, Duration) Notes Start Date End Date Status Tavaborole 5 % 1 application Pay Station Collector ally Once a day for 90 days 10/07/2024 Active Econazole Nitrate 1 % 1 application to a ffected toenail Externally Once a day for 90 days 10/28/2024 Active Multivitamin - 1 tablet Orally Once a day Active Efinaconazole 10 % 1 application Pay Station Collector ally Once a day for 90 days 10/08/2024 Active Vitamin D Active Vital Signs Heart Rate 85 /min 09/30/2024 Temperature 97.2 degrees Fahrenheit 09/30/2024 Respiratory Rate 16 /min 09/30/2024 Height 6ft 7in in 09/30/2024 Weight 272.7 lbs 09/30/2024 BMI 30.72 kg/m2 09/30/2024 Encounters Encounter Location Date Provider Diagnosis [facility] [address] [address] 09/30/2024 BERE MENSAH Onychomycosis B35.1 ; Nail dystrophy L60.3 and Pain of toe of right foot M79.674 [facility] [address] [address] 10/05/2024 BERE MENSAH [facility] [address] [address] 10/08/2024 BERE MENSAH [facility] [address] [address] 10/14/2024 BERE MENSAH [facility] [address] [address] 10/23/2024 BERE MENSAH [facility] [address] [address] 10/26/2024 BERE MENSAH Assessments Encounter Date Diagnosis (ICD [...] see results. We discussed using a separate seat nailer for the fungal toenail. We also discussed using an antifungal spray inside his shoes. Using a curette and seat nailer, I obtained a toenail biopsy of the [...] Name:BERE MENSAH, 01/06/2025 09:15:00 AM, [address] [facility] [address], [place], [address], Insurance Providers Payer Name Payer Address Payer Phone Subscriber Number Group Number Insured Name Patient Relationship to Insured Coverage Start Date Coverage End Date [place] [address] [place] [phone] [id number] Bishnu Lee Self - patient is the insured Medical (General) History Medical History History ICD Code Obesity Class 1 BHANU (generalized anxiety disorder) not COVID vaccinated Surgical History Surgery Date(Month/Year) bilateral finger surgery as a child
== END 2024-12-23 08:45 | disposition home or self-care (01) ==
LOC: HO.HUSH 08:07
PROVIDERS: PCP Nurse Practitioner Family; Visit Provider Nurse Practitioner Family
DX: N48.89 Other specified disorders of penis (principal); Z13.9 Encounter for screening, unspecified
CPT/HCPCS: 99203

== ENCOUNTER → 2024-12-23 08:05 | Outpatient (BNVA) | payer OTHER, SELFPAY | PROVIDERS: PCP Nurse Practitioner Family; Visit Provider Nurse Practitioner Family | DX: N48.89 Other specified disorders of penis (principal) | CPT/HCPCS: 81003 ==

== ENCOUNTER 2025-02-17 13:33 | Outpatient (AMB) | payer OTHER, SELFPAY ==
--- NOTE | 2025-02-17 13:38 | MHC.OFFVIS ---
Intake Visit Reasons: Skin Bridge Intake Note: Pt presents to the office today for skin bridge for penile adhesion Urology Meds:None Blood thinners:None Proposal Director Required: No Accompanied by: Self / Same As Patient Allergies aspartame Allergy (Mild, Verified 02/17/25 13:39) Unknown hydrocortisone (From Hydrocortone) Allergy (Mild, Verified 02/17/25 13:39) Rash mold Allergy (Mild, Verified 02/17/25 13:39) Unknown HPI Comments Details: Bishnu Gant is a very pleasant 29-year-old male patient of Dr. Echeverria. He presents to the office today as a new patient for issues with the foreskin of his penis. In discussion with the patient today he reports having had a circumcision many years ago however feels when his penis is erect he experiences a significant amount of pain. In assessment of the patient today the penis is circumcised however there are areas of adhesion noted along the anterior portion of his penis otherwise no open areas, lesions, or drainage noted. He denies any bothersome urinary issues. He denies urinary urgency, urinary frequency, incontinence, nocturia, hematuria, dysuria, foul smelling urine, changes to urinary stream, flank pain, fever, and or chills. He is happy with his current voiding parameters. In office urinalysis results reviewed with the patient today. We discussed skin bridge procedure in office procedure verses procedure under sedation. Risks and benefits of these interventions were discussed. All questions were answered. He otherwise offers no other issues or concerns at this time. - here for removal of skin bridge, proximally 25% of circumference involved from 12 o'clock to 3 o'clock position on the left side. [facility] Surgical History No pertinent past surgical history Social History Housing: House Patient Tobacco Use Status: Never used Tobacco e-Cigarette/Vaping Use: Never Used service: No Current occupational status: employed Current occupation: [employer] Current occupational exposures/hazards: No Cognitive needs: No Hearing needs: No Vision needs: No Office Procedures Procedure Thyroid Biopsy Procedural Documentation: Penile skin bridge Local anesthetic 1% bupivacaine with epinephrine infiltrated to skin bridge over left portion of penile glans Betadine applied Skin bridge clamped and divided with scissors This was repeated 4 times in order to fully divide the skin bridge. Smaller areas were cauterized Interrupted 4-0 chromic sutures were used for control of proximally 6 sutures placed on proximal portion and 3 sutures were placed on distal portion CPT 08987 Assessment & Plan Assessment & Plan (1) Penile adhesions w/skin bridging: Code(s): N48.89 - Other specified disorders of penis Category: Medical Plan Skin bridge divided under anesthetic Patient Instructions: This note is constructed using voice recognition software. While every effort has been made to ensure accuracy coremaking machine setter errors may have been included. Imaging studies, laboratory and physical exam results were discussed and reviewed in detail. No major barriers to patient understanding were identified. An opportunity to ask questions regarding the treatment plan was provided. All questions were answered. The patient expressed understanding and agreement with the above treatment plan. The patient is aware they should contact our office by phone for worsening of their current condition or the appearance of new urologic symptoms. Compliance is encouraged with any medications and followup testing that is ordered. It is a privilege to participate in the urologic care of your patient. If you have any questions or concerns regarding treatment for the above conditions, or other urologic issues, please do not hesitate to contact me. The office telephone contact is [phone]. Sincerely, Dr Jose Christianson MD, [facility] - Urology Compassionate Specialist Care for the Genitourinary System Coding Level of Care Code Procedure Only Diagnoses Penile adhesions w/skin bridging N48.89
--- OUTSIDE RECORDS SUMMARY | 2025-02-17 14:08 | XMS_ITS | Patient Health Record ---
Author Organization [facility] Address [address] [address] Care Team Providers Care J2Ee Software Engineer Name Role Phone Yareli Echeverria Primary Care Provider BERE Crandall Unavailable [phone] Allergies Allergen (clinical drug ingredient) Drug/Non Drug Allergy documented on EMR Reaction Allergy Type Onset Date Status aspartame Aspartame Unknown Drug Allergy Active Mold Unknown Allergy Active hydrocortisone Hydrocortisone Unknown Drug Allergy Active Reason For Referral No Information Medications Medication SIG (Take, Route, Frequency, Duration) Notes Start Date End Date Status Vitamin D Active Multivitamin - 1 tablet Orally Once a day Active Tavaborole 5 % 1 application Inventory Assistant ally Once a day; Duration: 90 days 10/07/2024 Not-Taking Efinaconazole 10 % 1 application Inventory Assistant ally Once a day; Duration: 90 days 10/08/2024 Not-Taking Econazole Nitrate 1 % 1 application to a ffected toenail Externally Once a day; Duration: 90 days 10/28/2024 Active Vital Signs Heart Rate 85 /min 01/06/2025 Temperature 97.7 degrees Fahrenheit 01/06/2025 Respiratory Rate 16 /min 01/06/2025 Height 6ft 7in in 01/06/2025 Weight 278.0 lbs 01/06/2025 BMI 31.31 kg/m2 01/06/2025 Encounters Encounter Location Date Provider Diagnosis [facility] [address] [address] 09/30/2024 BERE MENSAH Onychomycosis B35.1 ; Nail dystrophy L60.3 and Pain of toe of right foot M79.674 [facility] [address] [address] 01/06/2025 BERE MENSAH Onychomycosis B35.1 ; Nail dystrophy L60.3 and Pain of toe of right foot M79.674 [facility] [address] 10/05/2024 BERE [facility] [address] 10/08/2024 BERE MENSAH [facility] [address] 10/14/2024 BERE MENSAH [facility] [address] 10/23/2024 BERE MENSAH [facility] [address] 10/26/2024 BERE MENSAH Assessments Encounter Date Diagnosis [...] see results. We discussed using a separate nail galvanizer for the fungal toenail. We also discussed using an antifungal spray inside his shoes. Using a curette and nail galvanizer, I obtained a toenail biopsy of the [...] follow back with me in 3 months. 01/06/2025 Onychomycosis (ICD-10 - B35.1) He has about 20% clearance of the toenail after using the econazole medication for 2 months. I reviewed with the patient various treatment methods for toenail fungus including: topical, oral, laser, and removal of the infected toenails. I explained to the patient that a toenail takes about 12 months to grow out completely, so he should start to slowly see results. We discussed using a separate nail galvanizer for the fungal toenail. We also discussed using an antifungal spray inside his shoes. I would like him to continue to apply the medication on his toenail once daily. I would like to see him back in 6 months. He does not need refills at this time. We discussed if he has 50-75% improvement next visit, he can complete the course of the medication. If he has less improvement, I will change the medication. He is in agreement with this plan. 09/30/2024 Pain of toe of right foot (ICD-10 - M79.674) 01/06/2025 Nail dystrophy (ICD-10 - L60.3) 01/06/2025 Pain of toe of right foot (ICD-10 - M79.674) Plan Of Treatment Next Appt Details Provider Name:BERE MENSAH, 06/30/2025 08:00:00 AM, [address] [facility] [address], [place], [address], Insurance Providers Payer Name Payer Address Payer Phone Subscriber Number Group Number Insured Name Patient Relationship to Insured Coverage Start Date Coverage End Date [place] [address] [place] [phone] [id number] Bishnu Lee Self - patient is the insured Medical (General) History Medical History History ICD Code Obesity Class 1 BHANU (generalized anxiety disorder) not COVID vaccinated Surgical History Surgery Date(Month/Year) bilateral finger surgery as a child
--- OUTSIDE RECORDS SUMMARY | 2025-02-17 14:08 | XMS_ITS | Clinical Summary ---
Author Organization [facility] Address [address] [place] [address] Care Team Providers Care Quebracho Tanner Name Role Phone Yamilka Briceño MD Primary Care Provider [phone] Yamilka Briceño MD Unavailable [phone] Allergies Active Allergy Reactions Criticality Noted [...] Sore throat 10/04/2017 Overview (08/25/2023): Impression - [id number]: probably viral, possible mono Lower back pain 04/26/2017 Acute bronchitis 12/21/2016 Obesity 12/21/2016 Overview (08/25/2023): Impression - [id number]: Lose it! Impression - 85Fsg3450: weight loss Classic migraine with aura 12/21/2016 Overview (08/25/2023): Impression - [id number]: neurology f/u Impression - 89Ohm2131: one MOORE since move several month ago Immunizations Immunization Administration Dates Next Due DT (pediatric) 12/21/2014 [...] 101 10/04/2017 1:59 PM EDT Temperature 36.8 C (98.2 F) 10/04/2017 1:59 PM EDT Respiratory Rate - - Oxygen Saturation 96% [...] - 19+ 3-dose series) 2013 COVID-19 Vaccine (2023-2 5 season) 2024 Influenza (#1) 2025 Zoster (Shingrix) (1 of 2) 01/30/2044 Physical Discontinued 12/21/2016 HPV Vaccine (No Doses Required) Completed Hep A Aged Out No longer eligi ble based on patient's age to complete this topic Hib Aged Out No longer eligi ble based on patient's age to complete this topic Meningococcal ACWY Aged Out No longer eligible based on patient's age to complete this topic Pneumococcal Aged Out No longer eligi ble based on patient's age to complete this topic Care Teams Quebracho Tanner Relationship Specialty Start Date End Date Yamilka Briceño MD [address] [place] [id number] PCP - General 02/25/23 Yamilka Briceño MD [address] [place] [id number] PCP - Backup PCP Internal Medicine 08/21/23
== END 2025-02-17 14:57 | disposition home or self-care (01) ==
LOC: HO.HUSH 13:34
PROVIDERS: PCP Nurse Practitioner Family; Visit Provider Urology
DX: N48.89 Other specified disorders of penis (principal)
CPT/HCPCS: 54162

== ENCOUNTER → 2025-02-17 13:33 | Outpatient (BNVA) | payer OTHER, SELFPAY | PROVIDERS: PCP Nurse Practitioner Family; Visit Provider Urology | DX: N48.89 Other specified disorders of penis (principal) | CPT/HCPCS: 54162 ==

== ENCOUNTER 2025-03-24 12:46 | Outpatient (AMB) | payer OTHER, SELFPAY ==
--- NOTE | 2025-03-24 12:52 | MHC.OFFVIS ---
Intake Visit Reasons: Skin Bridge Intake Note: Pt presents to the office today for follow up on skin bridge for penile adhesion Urology Meds:None Blood thinners:None Clinical Genetics Laboratory Chief Required: No Accompanied by: Self / Same As Patient Allergies aspartame Allergy (Mild, Verified 03/24/25 12:53) Unknown hydrocortisone (From Hydrocortone) Allergy (Mild, Verified 03/24/25 12:53) Rash mold Allergy (Mild, Verified 03/24/25 12:53) Unknown HPI Comments Details: Bishnu Gant is a very pleasant 29-year-old male patient of Dr. Echeverria. He presents to the office today as a new patient for issues with the foreskin of his penis. In discussion with the patient today he reports having had a circumcision many years ago however feels when his penis is erect he experiences a significant amount of pain. In assessment of the patient today the penis is circumcised however there are areas of adhesion noted along the anterior portion of his penis otherwise no open areas, lesions, or drainage noted. He denies any bothersome urinary issues. He denies urinary urgency, urinary frequency, incontinence, nocturia, hematuria, dysuria, foul smelling urine, changes to urinary stream, flank pain, fever, and or chills. He is happy with his current voiding parameters. In office urinalysis results reviewed with the patient today. We discussed skin bridge procedure in office procedure verses procedure under sedation. Risks and benefits of these interventions were discussed. All questions were answered. He otherwise offers no other issues or concerns at this time. - here for removal of skin bridge, proximally 25% of circumference involved from 12 o'clock to 3 o'clock position on the left side. Skin bridge follow-up Well-healed He is very happy as has much less pain with erections Minimal deviation or tugging [facility] Surgical History No pertinent past surgical history Social History Housing: House Patient Tobacco Use Status: Never used Tobacco e-Cigarette/Vaping Use: Never Used service: No Current occupational status: employed Current occupation: [employer] Current occupational exposures/hazards: No Cognitive needs: No Hearing needs: No Vision needs: No Review of Systems Const Denies chills and Denies fever(s) Card Reports no additional complaints and Denies syncope Resp Denies cough GI Denies abdominal pain and Denies heartburn Reports as per HPI and Denies change in libido Neuro Denies syncope Psych Denies change in libido Endo Denies change in libido Physical Exam Const General: cooperative, healthy appearing, comfortable and no acute distress Orientation/consciousness: patient oriented x3 HEENT Face and sinus: Yes normal facial exam Mouth: moist mucous membranes Neck Neck: Yes normal visual inspection, Yes full ROM and Yes trachea midline Chest Chest palpation & inspection: normal inspection of the chest Resp Effort & Inspection: normal respiratory effort, able to speak in complete sentences and no respiratory distress GI Inspection: Yes normal to inspection Back/Spine/Pelvis Cervical Spine: normal cervical lordosis Thoracic/Lumbar Spine: thoracic and lumbar spine normal to inspection Skin General skin exam: no rashes or lesions noted Neuro General: patient oriented x3, gait normal, tone normal and moves all extremities Extrem General: Yes normal to inspection and Yes capillary refill normal Assessment & Plan Assessment & Plan (1) Penile adhesions w/skin bridging: Code(s): N48.89 - Other specified disorders of penis Category: Medical Plan P.r.n. follow-up Patient Instructions: This note is constructed using voice recognition software. While every effort has been made to ensure accuracy juvenile justice officer errors may have been included. Imaging studies, laboratory and physical exam results were discussed and reviewed in detail. No major barriers to patient understanding were identified. An opportunity to ask questions regarding the treatment plan was provided. All questions were answered. The patient expressed understanding and agreement with the above treatment plan. The patient is aware they should contact our office by phone for worsening of their current condition or the appearance of new urologic symptoms. Compliance is encouraged with any medications and followup testing that is ordered. It is a privilege to participate in the urologic care of your patient. If you have any questions or concerns regarding treatment for the above conditions, or other urologic issues, please do not hesitate to contact me. The office telephone contact is [phone]. Sincerely, Dr Jose Christianson MD, [facility] - Urology Compassionate Specialist Care for the Genitourinary System Coding Level of Care Code Global (12564) Diagnoses Penile adhesions w/skin bridging N48.89
--- OUTSIDE RECORDS SUMMARY | 2025-03-24 15:13 | XMS_ITS | Clinical Summary ---
Author Organization [facility] Address [address] [place] [address] Care Team Providers Care Project Geologist Name Role Phone Yamilka Briceño MD Primary Care Provider [phone] Yamilka Briceño MD Unavailable [phone] Allergies Active Allergy Reactions Criticality Noted [...] Sore throat 10/04/2017 Overview (08/25/2023): Impression - 29Nhn1524: probably viral, possible mono Lower back pain 04/26/2017 Acute bronchitis 12/21/2016 Obesity 12/21/2016 Overview (08/25/2023): Impression - 70Oih2410: Lose it! Impression - 87Oyy1577: weight loss Classic migraine with aura 12/21/2016 Overview (08/25/2023): Impression - 44Err5165: neurology f/u Impression - 02Egh0308: one MOORE since move several month ago [...] series) 2013 COVID-19 Vaccine (2023-2 5 season) 2025 Influenza (#1) 2025 Zoster (Shingrix) (1 of [...] age to complete this topic Care Teams Project Geologist Relationship Specialty Start Date End Date Yamilka Briceño MD [address] [place] [id number] PCP - General 02/25/23 Yamilka Briceño MD [address] [place] [address] PCP - Backup PCP Internal Medicine 08/21/23
--- OUTSIDE RECORDS SUMMARY | 2025-03-24 15:13 | XMS_ITS | Patient Health Record ---
Author Organization [facility] Address [address] [address] Care Team Providers Care Road Maker Name Role Phone Yareli Echeverria Primary Care Provider BERE Crandall Unavailable [phone] Allergies Allergen (clinical drug ingredient) Drug/Non Drug [...] day Active Tavaborole 5 % 1 application Glass Blowing Lathe Operator ally Once a day; Duration: 90 days 10/07/2024 Not-Taking Efinaconazole 10 % 1 application Glass Blowing Lathe Operator ally Once a day; Duration: 90 days [...] 01/06/2025 Encounters Encounter Location Date Provider Diagnosis [facility] [address] [address] 09/30/2024 BERE MENSAH Onychomycosis B35.1 ; Nail dystrophy L60.3 and Pain of toe of right foot M79.674 [facility] [address] [address] 01/06/2025 BERE MENSAH Onychomycosis B35.1 ; Nail dystrophy L60.3 and Pain of toe of right foot M79.674 [facility] [address] 10/05/2024 BERE [facility] [address] 10/08/2024 BERE MENSAH [facility] [address] 10/14/2024 BERE MENSAH [facility] [address] 10/23/2024 BERE MENSAH [facility] [address] 10/26/2024 BERE MENSAH Assessments Encounter Date [...] see results. We discussed using a separate core cutter and reamer for the fungal toenail. We also discussed using an antifungal spray inside his shoes. Using a curette and core cutter and reamer, I obtained a toenail biopsy of the [...] see results. We discussed using a separate core cutter and reamer for the fungal toenail. We also discussed [...] Name:BERE MENSAH, 06/30/2025 08:00:00 AM, [address] [facility] [address], [place], [address], Insurance Providers Payer Name Payer Address Payer Phone Subscriber Number Group Number Insured Name Patient Relationship to Insured Coverage Start Date Coverage End Date Welcome Demond [address] [place] [phone] [id number] Bishnu Lee Self - patient is the insured Medical (General) History Medical History History ICD Code Obesity Class 1 BHANU (generalized anxiety disorder) not COVID vaccinated Surgical History Surgery Date(Month/Year) bilateral finger surgery as a child
== END 2025-03-24 13:14 | disposition home or self-care (01) ==
LOC: HO.HUSH 12:47
PROVIDERS: PCP Nurse Practitioner Family; Visit Provider Urology
DX: N48.89 Other specified disorders of penis (principal)
CPT/HCPCS: 99024

== ENCOUNTER 2025-05-24 12:39 | Outpatient (AMB) | payer OTHER, SELFPAY ==
[2025-05-24 12:51] VITALS: BP 136/80; PULSE 93; TEMP 37; O2SAT 99; BMI 31.3
--- NOTE | 2025-05-24 12:51 | AM.OFFWIN_ITS ---
Intake Vital Signs 05/24/25 12:51 Height 6 ft 7 in Weight 278 lb BMI 31.3 BP 136/80 Blood Pressure Location Lt brachial Position Sitting Pulse 93 Pulse Source Pulse Oximeter Temp 98.6 F Temp Source Oral Pulse Oximetry (%) 99 Oxygen Delivery Method Room Air Intake Visit Reasons: EP Left hand pain Intake Note: Patient presents with c/o left middle finger/palm pain x2-3 days. Patient unsure if he hit it on something. Patient Tobacco Use Status: Never used Tobacco Allergies aspartame Allergy (Mild, Verified 05/24/25 12:54) Unknown hydrocortisone (From Hydrocortone) Allergy (Mild, Verified 05/24/25 12:54) Rash mold Allergy (Mild, Verified 05/24/25 12:54) Unknown Medication List - Last Reconciled 05/24/25 by Ofelia Clifford NP celecoxib (Celebrex) 50 mg PO BID 5 days eletriptan take 1 tab at onset of headache; if no relief may repeat 1 tab after at least 2 hrs; max = 4 tabs/24 hr PO inulin (Fiber Gummies) grams PO multivitamin 1 tab PO DAILY Do you need a note to return to daycare/school/sports/work: No HPI HPI Comments History of Present Illness Details 30 y/o Male patient presents to the walk -in clinic with c/o left middle finger and palm pain x 3 days. Patient is unsure if he hit it on something. Reports pain with range of motion of fingers. Denies numbness or tingling. Denies swelling, redness, or open wounds. No history of similar symptoms or trauma reported. [facility] Medical History (Updated 05/24/25 @ 13:29 by Ofelia Clifford NP) Pain of left middle finger Surgical History No pertinent past surgical history Social History Housing: House Patient Tobacco Use Status: Never used Tobacco e-Cigarette/Vaping Use: Never Used service: No Current occupational status: employed Current occupation: [employer], Accountable Current occupational exposures/hazards: No Cognitive needs: No Hearing needs: No Vision needs: No Review of Systems Const All systems reviewed & are unremarkable except as noted in HPI and below Physical Exam Vital Signs: Last Vital Signs Temp 98.6 F 05/24/25 12:51 Pulse 93 05/24/25 12:51 BP 136/80 05/24/25 12:51 Pulse Ox 99 05/24/25 12:51 Oxygen Delivery Method Room Air 05/24/25 12:51 BMI result Body Mass Index 31.3 Const General: no acute distress Nutritional Appearance: obese Orientation/consciousness: patient oriented x3 Neuro General: patient oriented x3, gait normal and moves all extremities Extrem General: Yes capillary refill normal Left upper extremity: hand Details: normal to inspection, normal capillary refill, tenderness Location: of the 3rd digit Location: at the MCP joint, normal ROM of fingers and no swelling; no unusual warmth, no abrasions, no lacerations and no crepitus Psych Speech and movement: Normal speech and movement present Assessment & Plan Assessment & Plan (1) Pain of left middle finger: Code(s): M79.645 - Pain in left finger(s) Plan: Left hand/finger pain ? likely soft tissue strain or contusion Differential: Tendonitis, sprain, early trigger finger, minor trauma. Rest and limit use of affected hand. Apply Ice 15?20 minutes, 3?4 times daily for first 48 hours NSAIDs (e.g.Celebrex) for pain/inflammation as needed. Gentle range of motion exercises as tolerated. If symptoms persist >5?7 days, worsen, or swelling develops ? return for re- evaluation or X-ray to rule out fracture. Medications: New celecoxib (Celebrex) 50 mg PO BID 20 caps 0RF 5 days M79.645 - Pain in left finger(s) Coding Level of Care Code Est Pt Level 4 (88248) Diagnoses Pain of left middle finger M79.645 Time Spent (min) 20
--- OUTSIDE RECORDS SUMMARY | 2025-05-24 16:01 | XMS_ITS | Patient Health Record ---
Author Organization [facility] Address [address] [address] Care Team Providers Care Core Loader Name Role Phone Yareli Echeverria Primary Care Provider BERE Crandall Unavailable [phone] Allergies Allergen (clinical drug ingredient) Drug/Non Drug [...] day Active Tavaborole 5 % 1 application Manufacturing Assistant ally Once a day; Duration: 90 days 10/07/2024 Not-Taking Efinaconazole 10 % 1 application Manufacturing Assistant ally Once a day; Duration: 90 [...] 01/06/2025 Encounters Encounter Location Date Provider Diagnosis [facility] [address] [address] 09/30/2024 BERE MENSAH Onychomycosis B35.1 ; Nail dystrophy L60.3 and Pain of toe of right foot M79.674 [facility] [address] [address] 01/06/2025 BERE MENSAH Onychomycosis B35.1 ; Nail dystrophy L60.3 and Pain of toe of right foot M79.674 [facility] [address] 10/05/2024 BERE [facility] [address] 10/08/2024 BERE MENSAH [facility] [address] 10/14/2024 BERE MENSAH [facility] [address] 10/23/2024 BERE MENSAH [facility] [address] 10/26/2024 BERE MENSAH Assessments Encounter Date [...] see results. We discussed using a separate lettuce cutter for the fungal toenail. We also discussed using an antifungal spray inside his shoes. Using a curette and lettuce cutter, I obtained a toenail biopsy of [...] see results. We discussed using a separate lettuce cutter for the fungal toenail. We also [...] Name:BERE MENSAH, 06/30/2025 08:00:00 AM, [address] [facility] [address], [place], [address], Insurance Providers Payer Name Payer Address Payer Phone Subscriber Number Group Number Insured Name Patient Relationship to Insured Coverage Start Date Coverage End Date Augusta Demond [address] [place] [phone] [id number] Bishnu Lee Self - patient is the insured Medical (General) History Medical History History ICD Code Obesity Class 1 BHANU (generalized anxiety disorder) not COVID vaccinated Surgical History Surgery Date(Month/Year) bilateral finger surgery as a child
--- OUTSIDE RECORDS SUMMARY | 2025-05-24 16:01 | XMS_ITS | Clinical Summary ---
Author Organization [facility] Address [address] [place] [address] Care Team Providers Care Retanner Name Role Phone Yamilka Briceño MD Primary Care Provider [phone] Yamilka Briceño MD Unavailable [phone] Allergies Active Allergy Reactions Criticality Noted [...] Sore throat 10/04/2017 Overview (08/25/2023): Impression - 33Fuz7750: probably viral, possible mono Lower back pain 04/26/2017 Acute bronchitis 12/21/2016 Obesity 12/21/2016 Overview (08/25/2023): Impression - 11Lfp8796: Lose it! Impression - 01Yqa3961: weight loss Classic migraine with aura 12/21/2016 Overview (08/25/2023): Impression - 81Eqd4414: neurology f/u Impression - 49Bjp8948: one MOORE since move several month ago [...] - 19+ 3-dose series) 2013 COVID-19 Vaccine (2024-2 6 season) 2025 Influenza (#1) 2025 Zoster (Shingrix) [...] age to complete this topic Care Teams Retanner Relationship Specialty Start Date End Date Yamilka Briceño MD [address] [place] [address] PCP - General 02/25/23 Yamilka Briceño MD [address] [place] [address] PCP - Backup PCP Internal Medicine 08/21/23
== END 2025-05-24 13:36 | disposition home or self-care (01) ==
PROVIDERS: PCP Nurse Practitioner Family; Visit Provider Nurse Practitioner Family
DX: M79.645 Pain in left finger(s) (principal)

== ENCOUNTER 2025-05-28 14:37 | Outpatient (AMB) | payer OTHER, SELFPAY ==
--- NOTE | 2025-05-28 14:31 | A.OFFPC_ITS ---
Intake Visit Reasons: Eye Dr. referral Intake Note: Bishnu presents for a telehealth appointment for a Eye doctor referral. Patient would like to discuss getting STD testing. Allergies aspartame Allergy (Mild, Verified 05/28/25 15:05) Unknown hydrocortisone (From Hydrocortone) Allergy (Mild, Verified 05/28/25 15:05) Rash mold Allergy (Mild, Verified 05/28/25 15:05) Unknown Medication List - Last Reconciled 05/28/25 by Yareli Echeverria [facility]- celecoxib (Celebrex) 50 mg PO BID 5 days eletriptan take 1 tab at onset of headache; if no relief may repeat 1 tab after at least 2 hrs; max = 4 tabs/24 hr PO inulin (Fiber Gummies) grams PO multivitamin 1 tab PO DAILY Tobacco use date assessed: 05/28/25 Dental Screening Dental Screen Date: 05/28/25 Did you have a dental visit in the last 12 months?: Yes Did you have a dental problem in the last 6 months where you did not have access to dental care?: No Was dental information given to patient?: Patient has dentist HPI HPI Comments History of Present Illness Details 30 y/o M with migraine, BHANU, obesity, ne ck pain Social works at [employer], lives w/ Mom Specialist podiatry chiro Neuro Uro Requesting referral for routine eye exam, wears glasses, last exam > 5 years ago. Glasses are 7 years old. He offers no acute visual complaints. He is also in a new sexual relationship and would like an STD screen. Denies current sx. Physical Exam Limited physical exam was conducted Awake alert NAD Speaking in full sentences Engaging, appropriate Skin pink warm and dry Mood and affect appropriate Results Pending Assessment and Plan Referral for [place] [facility] and lasix placed. He can call and schedule at his convenience STD screening labs placed, i will send results via portal once available., Patient was given time to ask questions. All questions were answered to their satisfaction. Telehealth Attestation The patient has been explained that this is an interactive (audio/video) telehealth encounter and what that consists of. The patient understands and wi shes to proceed. [employer] platform was used. Total time spent caring for the patient today was 11 minutes. This includes time spent before the visit reviewing the chart, time spent during the visit, and time spent after the visit on documentation, reviewing laboratory results, diagnostic imaging, medications, performing a medically necessary evaluation, counseling on diagnoses, care coordination, ordering appropriate tests, ordering appropriate medications, review of tests performed by other providers, reporting test results with the patient, communication with other healthcare providers. [facility] Medical History (Updated 05/28/25 @ 16:10 by JODIE Taylor-) Pain of left middle finger Surgical History No pertinent past surgical history Social History (Updated 05/28/25 @ 14:33 by Mabel Ignacio [facility]) Housing: House Alcohol intake: current Patient Tobacco Use Status: Never used Tobacco e-Cigarette/Vaping Use: Never Used Second Hand Smoke Exposure: No Use of substances other than those prescribed or required for medical reasons: No service: No Current occupational status: employed Current occupation: [employer], [employer] Current occupational exposures/hazards: No Cognitive needs: No Hearing needs: No Vision needs: No Questionnaire Thrive Questionnaire Date Thrive assessed: 09/02/24 BHANU-7 AMB Questionnaire BHANU-7 Date BHANU - 7 assessed: 09/02/24 Source: Developed by Drs. Oscar Rojas, Rosaline Rivera, Chang Perry and colleagues, with an educational vadim from [employer]. Physical exam (Primary Care) Tobacco/Smoking Status: Tobacco use Status Tobacco use date assessed 05/28/25 05/28/25 14:35 Patient Tobacco Use Status Never used Tobacco 05/28/25 14:35 e-Cigarette/Vaping Use Never Used 05/28/25 14:35 Thrive Assessment: Date of Thrive Assessment Date Thrive assessed 09/02/24 05/28/25 14:35 Telehealth Telehealth Telehealth Platform: [facility] Location of provider rendering services: practice address Location of patient: address on file Patient Identification confirmed using: Name, : Yes Telehealth method: video Patient verbally consented to treatment: Yes Patient verbally consented to billing insurance company: Yes Patient informed of any privacy concerns related to visit: Yes Minutes spent on Phone/Video with Pt.: 5 Coding Level of Care Code Tele Est Pt Level 2 (26795) Complex EM visit Add On G2211 Diagnoses Blurred vision H53.8 Encounter for screening for bacterial sexually transmitted disease Z11.3 Assessment & Plan Assessment & Plan (1) Blurred vision: Code(s): H53.8 - Other visual disturbances Category: Medical (2) Encounter for screening for bacterial sexually transmitted disease: Code(s): Z11.3 - Encounter for screening for infections with a predominantly sexual mode of transmission Plan , Orders: Orders CT NG by PCR Urine Today Z11.3 - Encounter for screening for infections with a predominantly sexual mode of transmission HIV Ab/Ag Today Z11.3 - Encounter for screening for infections with a predominantly sexual mode of transmission Syphilis Screen Today Z11.3 - Encounter for screening for infections with a predominantly sexual mode of transmission Referrals Ophthalmology Referral H53.8 - Other visual disturbances
--- OUTSIDE RECORDS SUMMARY | 2025-05-28 16:09 | XMS_ITS | Clinical Summary ---
Author Organization [facility] Address [address] [place] [address] Care Team Providers Care Aerial Applicator Pilot Name Role Phone Yamilka Briceño MD Primary Care Provider aYmilka Briceño MD Unavailable Allergies Active Allergy Reactions Criticality Noted Date [...] Sore throat 10/04/2017 Overview (08/25/2023): Impression - 16Aro7623: probably viral, possible mono Lower back pain 04/26/2017 Acute bronchitis 12/21/2016 Obesity 12/21/2016 Overview (08/25/2023): Impression - 82Iss1031: Lose it! Impression - 14Cai6482: weight loss Classic migraine with aura 12/21/2016 Overview (08/25/2023): Impression - 45Hvt9639: neurology f/u Impression - 45Nlx3708: one MOORE since move several month ago [...] age to complete this topic Care Teams Aerial Applicator Pilot Relationship Specialty Start Date End Date Yamilka Briceño MD [address] [place] [id number] PCP - General 02/25/23 Yamilka Briceño MD [address] [place] [phone] PCP - Backup PCP Internal Medicine 08/21/23
== END 2025-05-28 16:15 | disposition home or self-care (01) ==
LOC: HO.HMCFM 14:37
PROVIDERS: PCP Nurse Practitioner Family; Visit Provider Nurse Practitioner Family
DX: H53.8 Other visual disturbances (principal); Z11.3 Encounter for screening for infections with a predominantly sexual mode of transmission

== ENCOUNTER 2025-06-01 15:01 | Outpatient (REF) | payer OTHER, SELFPAY ==
--- OUTSIDE RECORDS SUMMARY | 2025-06-01 16:44 | XMS_ITS | Patient Health Record ---
Author Organization [facility] Address [address] [address] Care Team Providers Care Stem Assembler Name Role Phone Yareli Echeverria Primary Care Provider BERE Crandall Unavailable [phone] Allergies Allergen (clinical drug ingredient) Drug/Non Drug [...] day Active Tavaborole 5 % 1 application Supplier Diversity Director ally Once a day; Duration: 90 days 10/07/2024 Not-Taking Efinaconazole 10 % 1 application Supplier Diversity Director ally Once a day; Duration: 90 days [...] 01/06/2025 Encounters Encounter Location Date Provider Diagnosis [facility] [address] [address] 09/30/2024 BERE MENSAH Onychomycosis B35.1 ; Nail dystrophy L60.3 and Pain of toe of right foot M79.674 [facility] [address] [address] 01/06/2025 BERE MENSAH Onychomycosis B35.1 ; Nail dystrophy L60.3 and Pain of toe of right foot M79.674 [facility] [address] 10/05/2024 BERE [facility] [address] 10/08/2024 BERE MENSAH [facility] [address] 10/14/2024 BERE MENSAH [facility] [address] 10/23/2024 BERE MENSAH [facility] [address] 10/26/2024 BERE MENSAH Assessments Encounter Date [...] see results. We discussed using a separate hose suspender cutter for the fungal toenail. We also discussed using an antifungal spray inside his shoes. Using a curette and hose suspender cutter, I obtained a toenail biopsy of [...] see results. We discussed using a separate hose suspender cutter for the fungal toenail. We also [...] Name:BERE MENSAH, 06/30/2025 08:00:00 AM, [address] [facility] [address], [place], [address], Insurance Providers Payer Name Payer Address Payer Phone Subscriber Number Group Number Insured Name Patient Relationship to Insured Coverage Start Date Coverage End Date [place] [address] [place]HA [place] [phone] [id number] Bishnu Lee Self - patient is the insured Medical (General) History Medical History History ICD Code Obesity Class 1 BHANU (generalized anxiety disorder) not COVID vaccinated Surgical History Surgery Date(Month/Year) bilateral finger surgery as a child
[2025-06-02 03:25] LABS: CT PCR Urine NOT DETECTED (Not Detect.); NG PCR Urine NOT DETECTED (Not Detect.)
[2025-06-02 04:10] LABS: Syphilis Screen Nonreactive (Nonreactive)
[2025-06-02 04:42] LABS: HIV Num 1 0.07 S/CO (0.00-0.99)
== END 2025-06-01 15:02 | disposition home or self-care (01) ==
LOC: HO.HMGCLDS 15:01
PROVIDERS: PCP Nurse Practitioner Family; Visit Provider Nurse Practitioner Family
DX: Z11.4 Encounter for screening for human immunodeficiency virus [HIV] (principal); Z20.6 Contact with and (suspected) exposure to human immunodeficiency virus [HIV]; Z20.2 Contact with and (suspected) exposure to infections with a predominantly sexual mode of transmission
CPT/HCPCS: 86780; 87389; 87491; 87591